=== PATIENT | female | born 1955 | race Caucasian/White ===

== ENCOUNTER 2021-03-12 19:40 | Emergency (ER) | payer BC, OTHER ==
[~2021-03-12] VITALS: Ht 160 cm; Wt 65.3 kg
[2021-03-12 19:45] VITALS: BP_SYST 130
[2021-03-12] MEDS ORDERED: KETOROLAC TROMETHAMINE 30 MG VIAL IM ONE (20:30)
[2021-03-13] VITALS: BP_SYST 130
== END 2021-03-13 | disposition home or self-care (01) ==
LOC: SED 19:40
DX: R07.9 Chest pain, unspecified (principal); I10 Essential (primary) hypertension; E11.9 Type 2 diabetes mellitus without complications; Z88.2 Allergy status to sulfonamides; V49.49XA Driver injured in collision with other motor vehicles in traffic accident, initial encounter; Y93.89 Activity, other specified; Y92.89 Other specified places as the place of occurrence of the external cause; Y99.8 Other external cause status
CPT/HCPCS: 71045; 71250; 73030; 76376; 93005; 96372; 99285; J1885